=== PATIENT | male | born 1975 | race Caucasian/White ===

== ENCOUNTER 2020-10-19 08:49 | Emergency (ER) | payer MEDICARE, MEDICAID ==
[~2020-10-19] VITALS: Ht 170 cm; Wt 72.0 kg
[~2020-10-19 08:49] MED LIST: ALPR2TAB2; CPR500T PO; HYDR-3720
[2020-10-19] MEDS ORDERED: LACTATED RINGERS 1,000 ML IV ONE (09:00)
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
[2020-10-19 09:04] LABS: BASOPHILS # (AUTO) 0.1 10^3/uL (0.0-0.1); BASOPHILS % (AUTO) 1 % (0-10); EOSINOPHILS % (AUTO) 0 % (0-10); HEMATOCRIT 49 % (40-54); HEMOGLOBIN 16.8 g/dL (13.3-17.7); LYMPHOCYTES # (AUTO) 1.8 10^3/uL (1.0-4.0); LYMPHOCYTES % (AUTO) 17 % (12-44); MEAN CORPUSCULAR HEMOGLOBIN 30 pg (25-34); MEAN CORPUSCULAR HGB CONC 34 g/dL (32-36); MEAN CORPUSCULAR VOLUME 89 fL (80-99); MONOCYTES # (AUTO) 0.8 10^3/uL (0.0-1.0); MONOCYTES % (AUTO) 7 % (0-12); NEUTROPHILS # (AUTO) 7.9 10^3/uL (1.8-7.8); NEUTROPHILS % (AUTO) 74 % (42-75); PLATELET COUNT 468 10^3/uL (130-400); WHITE BLOOD COUNT 10.6 10^3/uL (4.3-11.0)
[2020-10-19 09:19] LABS: ALBUMIN 5.5 GM/DL (3.2-4.5); CHLORIDE 96 MMOL/L (98-107); POTASSIUM 3.1 MMOL/L (3.6-5.0); SODIUM 138 MMOL/L (135-145)
[2020-10-19] MEDS ORDERED: albuterol (09:19)
[2020-10-19] MEDS ORDERED: ALPR1TAB7 (09:19)
[2020-10-19] MEDS ORDERED: buprenorphine (09:19)
[2020-10-19] MEDS ORDERED: AZIT250T12 (09:19)
[2020-10-19] MEDS ORDERED: ONDA4TAB11 (09:19)
[2020-10-19] MEDS ORDERED: ARIP2TAB20 (09:19)
[2020-10-19] MEDS ORDERED: METH4TAB10 (09:19)
[2020-10-19] MEDS ORDERED: TRAZ-227 (09:19)
[2020-10-19 09:21] LABS: CALCIUM 10.9 MG/DL (8.5-10.1)
[2020-10-19 09:22] LABS: GLUCOSE 129 MG/DL (70-105); TOTAL PROTEIN 9.4 GM/DL (6.4-8.2)
[2020-10-19 09:23] LABS: CARBON DIOXIDE 27 MMOL/L (21-32)
[2020-10-19 09:24] LABS: BILIRUBIN,TOTAL 1.2 MG/DL (0.1-1.0)
[2020-10-19 09:26] LABS: ALKALINE PHOSPHATASE 62 U/L (40-136); CREATININE SERUM 1.23 MG/DL (0.60-1.30); GFR ESTIMATED > 60
[2020-10-19 09:27] LABS: BUN/CREATININE RATIO 15
[2020-10-19 09:28] LABS: ACETAMINOPHEN < 10 UG/ML (10-30); SALICYLATE < 5.0 MG/DL (5.0-20.0)
[2020-10-19 09:29] LABS: ALANINE AMINOTRANSFERASE 23 U/L (0-55)
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
--- NOTE | 2020-10-19 09:38 | Diagnostic Imaging Report ---
INDICATION: Altered mental status. Time of exam 9:31 AM No prior studies are available for comparison. The heart size is normal. The pulmonary vascularity is unremarkable. The lungs are clear. No infiltrate, effusion or pneumothorax is detected. Impression: No acute cardiopulmonary process is detected. Dictated by: Dictated on workstation # [id number]
[2020-10-19] MEDS ORDERED: LORazepam INJ 2 MG/ML (ATIVAN) VIAL IVP ONE ×2 (11:00→14:45)
[2020-10-19 11:03] LABS: BILIRUBIN,URINE NEGATIVE (NEGATIVE); CLARITY,URINE CLEAR; COLOR,URINE YELLOW; GLUCOSE, URINE (UA) NEGATIVE (NEGATIVE); KETONES,URINE 1+ (NEGATIVE); LEUKOCYTE ESTERASE ,URINE NEGATIVE (NEGATIVE); NITRITE,URINE NEGATIVE (NEGATIVE); PROTEIN,URINE 1+ (NEGATIVE)
[2020-10-19 11:12] LABS: AMORPHOUS SEDIMENT,UR MOD AMOR URATES /LPF; BACTERIA,URINE NEGATIVE /HPF; GRANULAR CASTS,URINE RARE /LPF; HYALINE CASTS, URINE RARE /LPF; WBC,URINE 0-2 /HPF
[2020-10-19 11:20] LABS: AMPHETAMINE SCREEN, URINE NEGATIVE (NEGATIVE); BARBITURATE SCREEN URINE NEGATIVE (NEGATIVE); BENZODIAZEPINES SCREEN URINE NEGATIVE (NEGATIVE); CANNABINOID SCREEN, URINE NEGATIVE (NEGATIVE); COCAINE SCREEN URINE NEGATIVE (NEGATIVE); METHADONE STAT NEGATIVE (NEGATIVE); METHAMPHETAMINE SCREEN URINE S NEGATIVE (NEGATIVE); OPIATE SCREEN URINE NEGATIVE (NEGATIVE); OXYCODONE STAT NEGATIVE (NEGATIVE); PROPOXYPHENE STAT NEGATIVE (NEGATIVE); TRICYCLIC ANTIDEPRESSANTS SCRE NEGATIVE (NEGATIVE)
[2020-10-19 15:44] VITALS: BP 136/81
[2020-10-19] MEDS ORDERED: LORazepam 0.5 MG (ATIVAN) TABLET PO ONE (15:45)
== END 2020-10-19 15:44 ==
LOC: EDUNIT# 08:49 → ER 08:51
DX: F29 Unspecified psychosis not due to a substance or known physiological condition (principal); F41.9 Anxiety disorder, unspecified; R41.3 Other amnesia; I10 Essential (primary) hypertension; F17.210 Nicotine dependence, cigarettes, uncomplicated; Z88.0 Allergy status to penicillin; Z20.822 Contact with and (suspected) exposure to COVID-19
CPT/HCPCS: 70450; 71045; 72125; 80053; 80306; 81000; 85025; 93005; 93041; 99284; G0480 ×3; U0002; 36415; 80320; 80329; 87635